=== PATIENT | female | born 1990 | race Caucasian/White ===

== ENCOUNTER → 2023-08-15 08:53 | Outpatient (BNVA) | payer BC, SELFPAY | PROVIDERS: PCP Family Medicine; Visit Provider Nurse Practitioner Family | DX: Z13.6 Encounter for screening for cardiovascular disorders (principal); Z12.4 Encounter for screening for malignant neoplasm of cervix; N89.8 Other specified noninflammatory disorders of vagina | CPT/HCPCS: 80053; 85025; 87070; 87205; 88175 ==

== ENCOUNTER → 2024-03-13 09:00 | Outpatient (BNVA) | payer BC, SELFPAY | PROVIDERS: PCP Family Medicine; Visit Provider Nurse Practitioner Family | DX: R09.81 Nasal congestion (principal); J02.9 Acute pharyngitis, unspecified | CPT/HCPCS: 87070; 87400; 87426; 87880 ==